=== PATIENT | male | born 1995 | race Caucasian/White ===

== ENCOUNTER 2024-05-27 21:13 | Emergency (ER) | payer OTHER ==
[2024-05-27 21:21] VITALS: BP 161/91; PULSE 95; RESP 18; TEMP 98.5; BMI 26.6
== END 2024-05-27 22:29 | disposition home or self-care (01) ==
LOC: JERFT 21:13
DX: S50.311A Abrasion of right elbow, initial encounter (principal); W50.4XXA Accidental scratch by another person, initial encounter; Y35.811A Legal intervention involving manhandling, law enforcement official injured, initial encounter
CPT/HCPCS: 99283-25